=== PATIENT | male | born 1995 | race Caucasian/White ===

== ENCOUNTER → 2020-08-20 | Outpatient (CLI) | payer OTHER ==
--- NOTE | 2020-08-24 14:18 | SLEEPCENT ---
NOCTURNAL POLYSOMNOGRAPHY DATE: 08/20/2020 ORDERED BY: Bernadette Everett NP Nocturnal polysomnography was performed for evaluation of sleep physiology. 7 hours and 2 minutes of data were reviewed. There were 391 minutes of sleep identified. Sleep latency was normal at 12.5 minutes. REM sleep was mildly delayed at 185 minutes. Sleep architecture improved. There were two REM cycles later in the study. Overall sleep efficiency was 93.8%. The electrocardiogram showed a sinus rhythm throughout with an average heart rate of 56 beats per minute; rate range 45 to 80. EEG showed normal waveforms for wake and sleep stages. There were no focal events identified. There were no obstructive respiratory events identified of 10 seconds in duration or greater. Snoring was noted and arousals from respiratory events were not seen. There was some minor activity in the limb leads. No trains of events were identified. Limb movement arousal index was within normal limits at 2.6. Oxygen saturations remained 90% plus throughout the study. IMPRESSION: Normal nocturnal polysomnography with snoring.
== END ==
LOC: M SLEEP 20:00
PROVIDERS: ATTEND Nurse Practitioner Primary Care
DX: G47.33 Obstructive sleep apnea (adult) (pediatric) (principal)

== ENCOUNTER → 2022-02-21 | Outpatient (CLI) | payer OTHER | LOC: M RAD 09:10 | PROVIDERS: ATTEND Student in an Organized Health Care Education/Training Program | DX: Q61.2 Polycystic kidney, adult type (principal); F41.9 Anxiety disorder, unspecified; G47.00 Insomnia, unspecified; M54.50 Low back pain, unspecified; M25.552 Pain in left hip; G47.30 Sleep apnea, unspecified; E55.9 Vitamin D deficiency, unspecified ==

== ENCOUNTER → 2024-01-29 | Outpatient (REF) | payer OTHER ==
[2024-01-29 12:00] LABS: SEMEN APPEARANCE OPAQUE (OPAQUE)
[2024-01-29 12:01] LABS: SEMEN VISCOSITY LIQUID (LIQUID); SEMEN pH 8.5 (7.0-8.0); WBC CONCENTRATION <=1 M/ml (<=1 M/ml)
== END ==
LOC: M LAB REF 11:30
PROVIDERS: ATTEND Nurse Practitioner Family
DX: Z30.2 Encounter for sterilization (principal)